=== PATIENT | female | born 1990 | race African-American/Black ===

== ENCOUNTER 2016-05-20 06:30 | Emergency (ER) | payer OTHER ==
[~2016-05-20] VITALS: Ht 165.1 cm; Wt 102.5 kg
[2016-05-20 06:36] VITALS: BP 149/91
--- NOTE | 2016-05-20 06:42 | ED SKIN/ALLERGY COMPLAINT ---
History of Present Illness General Chief Complaint: General Adult Stated Complaint: ALLERGIC REACTION SWOLLEN UPPER LIP Source: patient, family Exam Limitations: no limitations Vital Signs & Intake/Output Vital Signs & Intake/Output Vital Signs Date Time Temp Pulse Resp B/P Pulse O2 O2 Flow FiO2 Ox Delivery Rate 05/20 0543 100 Room Air 05/20 635 97.3 72 18 149/91 100 Room Air Allergies Coded Allergies: Fish Containing Products (Severe, 05/20/16) pollen extracts (Mild, 05/20/16) Reconcile Medications Diphenhydramine HCl (Benadryl) 25 MG CAPSULE 2 CAP PO TID PRN ALLERGIC REACTION FOR THE NEXT 3-4 DAYS Epinephrine (Epipen 2-Jim) 0.3 MG/0.3 ML AUTO.INJCT 1 INJ IM X1 PRN SEVERE ALLERGIC REACTION CALL 911 IF YOU USE EPI PEN. Prednisone 50 MG TABLET 1 TAB PO DAILY ALLERGIC REACTION Triage Note: 25 YEAR OLD FEMALE STATES THAT SHE ATE FISH YESTERDAY AFTERNOON AND THAT A LITTLE WHILE AFTER SHE NOTED THAT HER UPPER LIP STARTED TO SWELL , DENIES SOB, O2 SAT 100 % ON RA, PT TOOK BENADRYL YESTERDAY AND ZYRTEC LAST PM , TOOK NOTHING THIS AM. PT TO ROOM AND UPPER LIP NOTED TO BE SWOLLEN, SPEAKING IN FULL SENTENCES WITH NO SOB NOTED. PT MEDICATED WITH DECADRON PER ORDER OF DR DAVIS. Triage Nurses Notes Reviewed? yes Onset: Gradual Duration: hour(s):, continues in ED Timing: recent history Severity: mild, moderate Location: UPPER LIP Possible Factors: foods Modifying Factors: Improves With: antihistamine. Associated Symptoms: SWOLLEN UPPER LIP HPI: 25-year-old young woman presents with a swollen upper lip. She states that she had an allergic reaction previously to lollipop. Last night, she ate fish for dinner. She then developed swelling in her upper lip. She took some Zyrtec and improved her symptoms. But she awoke early this morning and noted the swelling had returned. She has no swollen tongue, dyspnea, wheezing, shortness of breath , dizziness. She is otherwise well and has no other concerns. Past History Travel History Traveled to [place] past 21 day No Medical History Any Pertinent Medical History? see below for history Other Medical Hx: Allergic reaction Surgical History Surgical History: none Family History Hx Contributory? No Review of Systems Review of Systems Constitutional: Reports: no symptoms. EENTM: Reports: no symptoms. Respiratory: Reports: no symptoms. Cardiovascular: Reports: no symptoms. GI: Reports: no symptoms. Genitourinary: Reports: no symptoms. Musculoskeletal: Reports: no symptoms. Skin: Reports: no symptoms. Neurological/Psychological: Reports: no symptoms. Hematologic/Endocrine: Reports: no symptoms. Immunologic/Allergic: Reports: no symptoms. All Other Systems: Reviewed and Negative Physical Exam Physical Exam General Appearance: well developed/nourished, mild distress Head: atraumatic Eyes: Bilateral: normal appearance. Ears, Nose, Throat: hearing grossly normal, UPPER LIP WITH SIGNIFICANT SWELLING. tONGUE AND OROPHARYNX ARE OTHERWISE NORMAL Neck: normal inspection, supple Respiratory: normal breath sounds, chest non-tender, no respiratory distress, quiet respiration, lungs clear Cardiovascular: regular rate/rhythm Gastrointestinal: soft, non-tender Back: normal inspection Extremities: normal inspection, normal range of motion, no edema Neurologic/Psych: awake, alert, oriented x 3, normal mood/affect Lymphatic: no anterior cervical gianluca Progress Differential Diagnosis: urticaria, VERSUS ANGIOEDEMA VERSUS OTHER Plan of Care: Current Medications Sig/Cindy Start time Last Medication Dose Stop Time Status Admin Diphenhydramine HCl 50 MG ONCE ONE 05/20 644 UNVr (Benadryl) 05/20 645 Departure Departure Disposition: HOME OR SELF CARE Condition: Stable Clinical Impression Primary Impression: Allergic reaction Secondary Impressions: Urticaria Referrals: HUA BRAVO MD (PCP/Family) Departure Forms: Customer Survey General Discharge Information Prescriptions: Current Visit Scripts Diphenhydramine HCl (Benadryl) 2 CAP PO TID PRN ALLERGIC REACTION #30 CAP FOR THE NEXT 3-4 DAYS Epinephrine (Epipen 2-Jim) 1 INJ IM X1 PRN SEVERE ALLERGIC REACTION #1 KIT CALL 911 IF YOU USE EPI PEN. Prednisone 1 TAB PO DAILY #5 TAB Comments 05/20/2016, 6:56 AM: Patient's allergic reaction seems restricted to the upper lip. There is no tongue involvement or dyspnea of any kind. She has had these symptoms since yesterday evening. She was given Benadryl and Decadron in the emergency department I prescribed 5 days of prednisone with [id number] Benadryl as well as an EpiPen. I referred the patient to an fabric inspector. I advised for close follow-up. The patient is feeling well and would like to leave due to the inclement weather. Immediate return to the emergency department counseled should her symptoms worsen.
[2016-05-20] MEDS ORDERED: EPIPEN 2-P0.3 MG/0.3 IM ×2 (06:45→06:52)
[2016-05-20] MEDS ORDERED: BENADRYL25 MG PO ×2 (06:45→06:52)
[2016-05-20] MEDS ORDERED: PREDNISONE50 M1 PO ×2 (06:45→06:52)
== END 2016-05-20 06:52 ==
LOC: ERH 06:30
DX: T78.1XXA Other adverse food reactions, not elsewhere classified, initial encounter (principal); R22.0 Localized swelling, mass and lump, head; L50.0 Allergic urticaria